=== PATIENT | male | born 1965 | race Caucasian/White ===

== ENCOUNTER → 2017-03-16 | Outpatient (CLI) | payer OTHER ==
[~2017-03-16] MED LIST: GADOBUTROL 10 ML VIAL IVP ONE
== END ==
LOC: FIMAGING 07:13
PROVIDERS: ATTEND Internal Medicine
DX: R41.840 Attention and concentration deficit (principal); Z87.820 Personal history of traumatic brain injury; E22.1 Hyperprolactinemia; Z86.39 Personal history of other endocrine, nutritional and metabolic disease
CPT/HCPCS: A9585